=== PATIENT | female | born 1945 | race Caucasian/White ===

== ENCOUNTER → 2024-06-10 10:22 | Outpatient (REF) | payer MEDICARE, OTHER, SELFPAY ==
[2024-06-10 12:14] LABS: Free T4 1.22 ng/dl (0.78-2.19)
[2024-06-10 12:28] LABS: TSH 0.91 uIU/ml (0.47-4.68)
== END ==
LOC: REG 10:22
PROVIDERS: ATTENDING PHYSICIAN Internal Medicine Endocrinology, Diabetes & Metabolism; FAMILY PHYSICIAN Family Medicine
DX: E06.3 Autoimmune thyroiditis (principal)
CPT/HCPCS: 36415; 84439; 84443

== ENCOUNTER → 2025-06-10 11:11 | Outpatient (REF) | payer MEDICARE, OTHER, SELFPAY ==
[2025-06-10 13:10] LABS: TSH 1.80 uIU/ml (0.47-4.68)
== END ==
LOC: REG 11:11
PROVIDERS: ATTENDING PHYSICIAN Internal Medicine Endocrinology, Diabetes & Metabolism; FAMILY PHYSICIAN Physician Assistant Medical
DX: E06.3 Autoimmune thyroiditis (principal)
CPT/HCPCS: 36415; 84439; 84443